=== PATIENT | male | born 1975 | race American Indian/Alaskan Native ===

== ENCOUNTER 2019-04-03 03:50 | Emergency (ER) | payer SELFPAY ==
[2019-04-03] MEDS ORDERED: dexAMETHasone 4 MG/ML VIAL IM ONE (08:30)
[2019-04-03] MEDS ORDERED: PEN G BENZ/PEN G PROCAINE 1.2 MILLION UNIT/2 ML INJ IM NR (08:30)
--- NOTE | 2019-04-03 08:30 | Emergency Department Report ---
Minor Respiratory - HPI Chief Complaint: Sore Throat Stated Complaint: SWOLLEN GLANDS Time Seen by Provider: 04/03/19 08:24 Duration: 3 Days Pain Location: Facial, Throat Severity: moderate Minor Respiratory: Yes Sore Throat, Yes Able to Tolerate Fluids, Yes Fever, No Rhinorrhea, No Ear Pain, No Cough, No Sick Contacts, No Hemoptysis, No Chest Pain, No Shortness of Breath Other History: 43 YO WITH SORE THROAT AND SWOLLEN NODES. STREP ORDERED IN TRIAGE POS. REPORTS DIFFICULTY SWALLOWING TO [facility]. ED Review of Systems ROS: Stated complaint: SWOLLEN GLANDS Other details as noted in HPI Comment: All other systems reviewed and negative ED Past Medical Hx - Past Medical History Previous Medical History?: No - Surgical History Past Surgical History?: No - Social History Smoking Status: Never Smoker Substance Use Type: None - Medications Home Medications: Home Medications Medication Instructions Recorded Confirmed Last Taken Type Amoxicillin [Trimox CAP] 500 mg PO BID #20 capsule 04/03/19 Unknown Rx Minor Respiratory Exam - Exam General: Vital signs noted. No distress. Alert and acting appropriately. HEENT: Yes Pharyngeal Erythema, Yes Pharyngeal Exudates, Yes Moist Mucous Membranes, No Rhinorrhea, No Conjuctival Injection, No Frontal Tenderness, No Maxillary Tenderness Ear: Neither TM Bulge, Neither TM Erythema, Neither EAC Pain, Neither EAC Discharge Neck: Yes Supple, No Adenopathy Lungs: Yes Good Air Exchange, No Wheezes, No Ronchi, No Stridor, No Cough, No Labored Respirations, No Retractions, No Use of Accessory Muscles, No Other Abnormal Lung Sounds Heart: Yes Regular, No Murmur Abdomen: Yes Normal Bowel Sounds, No Tenderness, No Peritoneal Signs Skin: No Rash, No Edema Neurologic: Alert and oriented, no deficits. Musculoskeletal: Unremarkable. ED Course Vital Signs 04/03/19 03:54 Temperature 98.9 F Pulse Rate 86 Respiratory 16 Rate Blood Pressure 171/88 O2 Sat by Pulse 97 Oximetry ED Medical Decision Making - Medical Decision Making Lab Results 04/03/19 Range/Units Unknown Group A Strep Rapid Positive A (Negative) Vital Signs 04/03/19 04/03/19 03:54 09:08 Temperature 98.9 F Pulse Rate 86 81 Respiratory 16 98 H Rate Blood Pressure 171/88 Blood Pressure 168/72 [Left] O2 Sat by Pulse 97 Oximetry BICILLIN AND DECADRON IM TAKING PO CONTROLLING SECRETIONS REPORTS FEELING BETTER AFTER RX DC HOME WITH RX FOR AMOX AND PCP FOLLOW UP HE VERBALIZES UNDERSTANDING OF DC PLAN OF CARE. Critical care attestation.: If time is entered above; I have spent that time in minutes in the direct care of this critically ill patient, excluding procedure time. ED Disposition Clinical Impression: Strep throat Disposition: DC-01 TO HOME OR SELFCARE Is pt being admited?: No Does the pt Need Aspirin: No Condition: Stable Instructions: Pharyngitis (ED) Prescriptions: Amoxicillin [Trimox CAP] 500 mg PO BID #20 capsule Referrals: BERNARDO NORRIS MD [Staff Physician] - 3-5 Days Time of Disposition: 08:34
[2019-04-03 09:09] VITALS: BP 168/72
== END 2019-04-03 09:09 | disposition home or self-care (01) ==
LOC: ED 03:50
DX: J02.0 Streptococcal pharyngitis (principal); Z79.899 Other long term (current) drug therapy
CPT/HCPCS: 87430; 96372; 99283; J0558; J1100

== ENCOUNTER 2020-01-06 11:31 | Emergency (ER) | payer SELFPAY ==
[2020-01-06 11:43] VITALS: BP 175/94
--- NOTE | 2020-01-06 12:19 | Emergency Department Report ---
Blank Doc - Documentation Documentation: 44-year-old male that presents with rectal pain with unable to urinate and have a bowel movement. Stated has blood in his stool. Exam: no rectal hemorrhoids noted on exam with Adriane LEROY present during exam as chaprone. This initial assessment/diagnostic orders/clinical plan/treatment(s) is/are subject to change based on patient's health status, clinical progression and re- assessment by fellow clinical providers in the ED. Further treatment and workup at subsequent clinical providers discretion. Patient/guardians urged not to elope from the ED as their condition may be serious if not clinically assessed and managed. Initial orders include: 1- Patient sent to [facility] for further evaluation and treatment 2- labs 3- UA
[2020-01-06 14:06] LABS: Basophils % (Auto) 0.2 % (0.0-1.8); Eosinophils % (Auto) 0.1 % (0.0-4.3); Hematocrit 50.4 % (35.5-45.6); Lymphocytes # (Auto) 1.3 K/mm3 (1.2-5.4); Mean Corpuscular HGB Conc 34 % (32-34); Mean Corpuscular Volume 103 fl (84-94); Monocytes # (Auto) 1.5 K/mm3 (0.0-0.8); Monocytes % (Auto) 7.9 % (0.0-7.3); Platelet Count 257 K/mm3 (140-440); Red Blood Count 4.91 M/mm3 (3.65-5.03); Red Cell Distribution Width 13.8 % (13.2-15.2)
[2020-01-06 14:19] LABS: Alanine Aminotransferase 10 units/L (7-56); BUN/Creatinine Ratio 9; Blood Urea Nitrogen 11 mg/dL (9-20); Calcium 9.9 mg/dL (8.4-10.2); Hemolysis Index 4
== END 2020-01-06 15:08 | disposition left against medical advice (07) ==
LOC: ED 11:31
DX: K62.5 Hemorrhage of anus and rectum (principal); Z53.21 Procedure and treatment not carried out due to patient leaving prior to being seen by health care provider
CPT/HCPCS: 36415; 80053; 85025